=== PATIENT | female | born 1980 | race Caucasian/White ===

== ENCOUNTER 2017-08-05 10:33 | Emergency (ER) | payer OTHER ==
[~2017-08-05] VITALS: Ht 149.9 cm; Wt 54.6 kg
[~2017-08-05 10:33] MED LIST: ALBU90OI INH; AMOX500 PO; CRUTCH2 USE; HYDACE5 PO; IBUP400 PO; MULVITMINE PO; ONDA4 PO; PROM25 PO; RXPROM25 PO
[2017-08-05 11:33] LABS: Influenza A Negative (NEGATIVE); Influenza B Positive (NEGATIVE)
[2017-08-05] MEDS ORDERED: Tamiflu75 MG PO (11:53)
== END 2017-08-05 12:35 | disposition home or self-care (01) ==
LOC: ER 10:33
PROVIDERS: Physician Assistant
DX: J10.1 Influenza due to other identified influenza virus with other respiratory manifestations (principal); J45.909 Unspecified asthma, uncomplicated
CPT/HCPCS: 71046; 87081; 87430; 87804; 96361; 96374; 99283; J1885; J7030

== ENCOUNTER 2017-08-07 05:46 | Emergency (ER) | payer OTHER ==
[~2017-08-07] VITALS: Ht 149.9 cm; Wt 52.2 kg
[~2017-08-07 05:46] MED LIST changes: +Tamiflu75 MG PO
[2017-08-07] MEDS ORDERED: IBUP800 PO (06:25)
[2017-08-07] MEDS ORDERED: Percocet 5-3251 EACH PO (06:25)
== END 2017-08-07 06:32 | disposition home or self-care (01) ==
LOC: ER 05:46
DX: J10.1 Influenza due to other identified influenza virus with other respiratory manifestations (principal); J45.909 Unspecified asthma, uncomplicated; Z79.899 Other long term (current) drug therapy
CPT/HCPCS: 99283

== ENCOUNTER → 2019-10-10 | Outpatient (CLI) | payer BC ==
[~2019-10-10] MED LIST changes: +IBUP800 PO; +Percocet 5-3251 EACH PO
== END | disposition home or self-care (01) ==
LOC: LAB SHORT 15:40 → LAB 15:40
DX: R35.0 Frequency of micturition (principal); R30.9 Painful micturition, unspecified
CPT/HCPCS: 87077; 87086; 87186

== ENCOUNTER → 2021-09-21 | Outpatient (CLI) | payer BC ==
[2021-09-26 17:10] LABS: HPV 16 Negative (Negative); HPV 18 Negative (Negative); HPV OTHER HR TYPES Negative (Negative)
== END ==
LOC: LAB SHORT 11:13
PROVIDERS: Physician Assistant Medical
DX: Z12.4 Encounter for screening for malignant neoplasm of cervix (principal)
CPT/HCPCS: 87624; G0145